=== PATIENT | male | born 1975 | race Hispanic/Latino ===

== ENCOUNTER 2018-01-21 20:51 | Emergency (ER) | payer SELFPAY ==
[2018-01-21] MEDS ORDERED: CEFTRIAXONE SODIUM 500 MG VIAL ONE (21:58)
[2018-01-21] MEDS ORDERED: AZITHROMYCIN 250 MG TABLET PO ONE (21:59)
[2018-01-21] MEDS ORDERED: LIDOCAINE HCL-MPF 1% 2ML VIAL ONE (21:59)
[2018-01-21 22:15] LABS: APPEARANCE,URINE Clear (CLEAR); BILIRUBIN,URINE Negative (NEGATIVE); COLOR,URINE Yellow (YELLOW); GLUCOSE, URINE (UA) Negative (NEGATIVE); KETONES,URINE Negative (NEGATIVE); LEUKOCYTE ESTERASE ,URINE Negative (NEGATIVE); NITRATE,URINE Negative (NEGATIVE); OCCULT BLOOD,URINE Trace (NEGATIVE); PH,URINE 5.5 (5.0-8.0); PROTEIN,URINE POS 1+ (NEGATIVE)
[2018-01-21] MEDS ORDERED: IBUPROFEN 600 MG TABLET ONE (22:19)
[2018-01-21 22:20] LABS: AMPHET/METH SCREEN,URINE NEGATIVE (NEGATIVE); BARBITURATE SCREEN, URINE NEGATIVE (NEGATIVE); BENZODIAZEPINES SCREEN,URINE NEGATIVE (NEGATIVE); CANNABINOID SCREEN,URINE NEGATIVE (NEGATIVE); COCAINE SCREEN,URINE POSITIVE (NEGATIVE); OPIATE SCREEN,URINE NEGATIVE (NEGATIVE); PHENCYCLIDINE SCREEN,URINE NEGATIVE (NEGATIVE)
[2018-01-21 22:30] LABS: BACTERIA,URINE None Seen /HPF (None Seen); RBC,URINE 0-1 /HPF (0-1); SQUAMOUS EPITHELIAL CELL,UR Rare /HPF (0-2); WBC,URINE None Seen /HPF (0-1)
== END 2018-01-21 22:21 | disposition home or self-care (01) ==
LOC: EDH 20:51
DX: N45.3 Epididymo-orchitis (principal); Z72.0 Tobacco use
CPT/HCPCS: 76870; 80305; 81001; 87486; 87797; 96372; 99285; J0696; J3490

== ENCOUNTER 2019-01-19 23:48 | Emergency (ER) | payer OTHER ==
[2019-01-20] MEDS ORDERED: NALOXONE HCL 0.4 MG/1 ML ML ONE (05:14)
== END 2019-01-20 00:44 | disposition home or self-care (01) ==
LOC: EDH 23:48
DX: S69.81XA Other specified injuries of right wrist, hand and finger(s), initial encounter (principal); Z72.0 Tobacco use; W20.8XXA Other cause of strike by thrown, projected or falling object, initial encounter; Y93.89 Activity, other specified; Y92.89 Other specified places as the place of occurrence of the external cause; Y99.8 Other external cause status
CPT/HCPCS: 99281; J2310

== ENCOUNTER 2019-02-15 01:34 | Emergency (ER) | payer OTHER | END 2019-02-15 06:27 | disposition home or self-care (01) | LOC: EDH 01:34 | DX: S70.11XA Contusion of right thigh, initial encounter (principal); M62.838 Other muscle spasm; M79.651 Pain in right thigh; M25.561 Pain in right knee; W01.0XXA Fall on same level from slipping, tripping and stumbling without subsequent striking against object, initial encounter; Y93.89 Activity, other specified; Y92.814 Boat as the place of occurrence of the external cause | CPT/HCPCS: 93971 ==

== ENCOUNTER 2020-11-07 20:56 | Emergency (ER) | payer BC ==
[2020-11-07] MEDS ORDERED: FLUCONAZOLE 100 MG TAB ONE (21:41)
== END 2020-11-07 21:47 | disposition home or self-care (01) ==
LOC: EDH 20:56
DX: B37.42 Candidal balanitis (principal); Z79.899 Other long term (current) drug therapy

== ENCOUNTER 2021-09-13 11:42 | Emergency (ER) | payer BC ==
[~2021-09-13] VITALS: Ht 188 cm; Wt 117.9 kg
[2021-09-13 12:55] LABS: BASOPHILS % (AUTO) 0.6 % (0.0-5.0); EOSINOPHILS % (AUTO) 3.7 % (0.0-8.0); HEMATOCRIT 51.1 % (42-54); LYMPHOCYTES % (AUTO) 16.6 % (21.0-51.0); MEAN CORPUSCULAR HGB CONC 32.7 g/dL (32.0-36.0); MEAN CORPUSCULAR VOLUME 85.6 fL (79-99); MONOCYTES % (AUTO) 7.2 % (3.0-13.0); NEUTROPHILS % (AUTO) 70.9 % (40.0-77.0); PLATELET COUNT (AUTO) 264 K/uL (130-400); RED BLOOD CELL COUNT(AUTO) 5.97 MIL/uL (4.50-6.20); WHITE BLOOD COUNT (AUTO) 11.5 K/uL (4.8-10.8)
[2021-09-13 13:12] LABS: ALBUMIN 3.8 g/dL (3.5-5.0); BILIRUBIN,TOTAL 0.3 mg/dL (0.2-1.0); CREATININE 1.4 mg/dL (0.5-1.5); POTASSIUM 4.6 mmol/L (3.5-5.1); TOTAL PROTEIN, SERUM 7.5 g/dL (6.0-8.3)
[2021-09-13] MEDS: FLUCONAZOLE 100 MG TAB PO ONE (14:52)
[2021-09-13] MEDS: 0.9%NACL 1000ML 1,000 ML IV ONE ×2 (14:52→16:08)
[2021-09-13] MEDS ORDERED: INSULIN HUMULIN R 100 UNIT/ML 3ML SQ ONE (15:00)
[2021-09-13] MEDS: INSULIN HUMULIN R 100 UNIT/ML 3ML IV ONE ×2 (15:16→16:08)
[2021-09-13 15:55] LABS: APPEARANCE,URINE Clear (CLEAR); BILIRUBIN,URINE Negative (NEGATIVE); COLOR,URINE Yellow (YELLOW); GLUCOSE, URINE (UA) >=1000 mg/dL (NEGATIVE); KETONES,URINE Negative (NEGATIVE); LEUKOCYTE ESTERASE ,URINE Negative (NEGATIVE); NITRATE,URINE Negative (NEGATIVE); OCCULT BLOOD,URINE Negative (NEGATIVE); PROTEIN,URINE Negative (NEGATIVE); UROBILINOGEN,URINE 0.2 mg/dL (0.2-1.0)
[2021-09-13 16:01] LABS: BACTERIA,URINE Few /HPF (None Seen); RBC,URINE 0-1 /HPF (0-1); SQUAMOUS EPITHELIAL CELL,UR Rare /HPF (0-2)
[2021-09-13] MEDS: CEFTRIAXONE 1G VIAL IVP ONE (16:51)
[2021-09-13] MEDS ORDERED: CEPH500B PO (17:13)
[2021-09-13] MEDS ORDERED: FLUC150T PO (17:13)
[2021-09-13 18:03] VITALS: BP 131/95
== END 2021-09-13 18:05 | disposition home or self-care (01) ==
LOC: EDH 11:42
DX: N48.1 Balanitis (principal); N39.0 Urinary tract infection, site not specified; E11.65 Type 2 diabetes mellitus with hyperglycemia; E66.9 Obesity, unspecified; E78.00 Pure hypercholesterolemia, unspecified; I10 Essential (primary) hypertension; Z79.4 Long term (current) use of insulin; Z68.33 Body mass index [BMI] 33.0-33.9, adult
CPT/HCPCS: 36415; 80053; 81001; 82010; 82948 ×2; 85025; 96361; 96374; 96375; 96376; 99284; J0696; J1815 ×2; J7030